=== PATIENT | male | born 1945 | race Caucasian/White ===

== ENCOUNTER 2019-12-18 15:42 | Inpatient (IN) | payer OTHER ==
[~2019-12-18] VITALS: Ht 182.9 cm; Wt 116.1 kg
[2019-12-18 15:42] VITALS: BP_SYST 123
[2019-12-18] MEDS ORDERED: NACL 0.9% 1,000 ML IV ONE (15:45)
[2019-12-18] MEDS ORDERED: ASPIRIN 81 MG TAB.CHEW PO ONE (15:45)
[2019-12-18 16:30] LABS: BASOPHILS % (AUTO) 0.4 % (0.0-2.0); EOSINOPHILS # (AUTO) 0.1 K/uL (0.0-0.4); EOSINOPHILS % (AUTO) 1.4 % (0.0-4.0); HEMATOCRIT 35.7 % (36-54); LYMPHOCYTES % (AUTO) 36.3 % (20.5-51.5); MEAN CORPUSCULAR HEMOGLOBIN 33 pg (27-31); MEAN CORPUSCULAR HGB CONC 34 % (32-36); MEAN CORPUSCULAR VOLUME 98 fL (79.0-98.0); MONOCYTES # (AUTO) 0.8 K/uL (0.0-1.0); MONOCYTES % (AUTO) 9.5 % (1.7-9.3); NEUTROPHILS # (AUTO) 4.4 K/uL (1.8-7.7); NEUTROPHILS % (AUTO) 52.4 % (40.0-70.0); PLATELET COUNT (AUTO) 221 K/uL (130-430); RED BLOOD CELL COUNT(AUTO) 3.66 MIL/uL (4.2-6.2); WHITE BLOOD COUNT (AUTO) 8.3 K/uL (4.8-10.8)
[2019-12-18 16:41] LABS: ANION GAP 6 (5-15); CALCIUM 8.2 mg/dL (8.4-11.0); CHLORIDE 99 mmol/L (98-107); CREATININE 1.08 mg/dL (0.55-1.30); GLUCOSE 112 mg/dL (70-99); POTASSIUM 3.7 mmol/L (3.5-5.1); SODIUM SERUM 130 mmol/L (136-145); UREA NITROGEN, BLOOD 22 mg/dL (8-21)
[2019-12-18 16:44] LABS: INR 1.1 (0.80-1.20); PROTHROMBIN TIME 10.9 SECS (9.5-12.5)
[2019-12-18 16:45] LABS: ALANINE AMINOTRANSFERASE 38 U/L (12-78); ALBUMIN 3.2 g/dL (3.4-4.8); AMYLASE 41 U/L (0-100); ASPARTATE AMINOTRANSFERASE 27 U/L (10-37); LIPASE 105 U/L (73-393); TOTAL BILIRUBIN 0.3 mg/dL (0.0-1.0)
[2019-12-18] MEDS ORDERED: LISI-600 PO (16:51)
[2019-12-18] MEDS ORDERED: LIP20 PO (16:57)
[2019-12-18] MEDS ORDERED: CARB200T PO ×2 (16:57→22:13)
[2019-12-18] MEDS ORDERED: METO25TA6 PO (16:57)
[2019-12-18] MEDS ORDERED: PRAS5TAB6 PO (16:57)
[2019-12-18 17:15] LABS: ALCOHOL, BLOOD < 3 mg/dL (<10)
[2019-12-18 17:55] VITALS: BP_SYST 148
[2019-12-18] MEDS ORDERED: ONDANSETRON HCL 4 MG/2 ML VIAL IVP PRN (18:15)
[2019-12-18] MEDS ORDERED: MORPHINE 2 MG/ML INJ. SYRINGE IVP PRN (18:15)
[2019-12-18] MEDS ORDERED: ACETAMINOPHEN 325 MG TABLET PO PRN (18:15)
[2019-12-18] MEDS ORDERED: MORPHINE 4 MG/ML INJ. SYRINGE IVP PRN (18:15)
[2019-12-18] MEDS ORDERED: ALBUTEROL SULFATE 0.083% 2.5 MG/3 ML VIAL.NEB INH PRN (18:15)
[2019-12-18 18:31] VITALS: BP_SYST 96
[2019-12-18 20:00] VITALS: BP_SYST 151
[2019-12-18] MEDS: TAMSULOSIN HCL 0.4 MG CAP PO SCH (20:58)
[2019-12-19 00:26] VITALS: BP_SYST 122
[2019-12-19] MEDS: PANTOPRAZOLE SODIUM 40 MG/VIAL (PROTONIX) IVP SCH ×3 (05:02→20:39)
[2019-12-19 07:24] LABS: BASOPHILS # (AUTO) 0.1 K/uL (0.0-0.2); BASOPHILS % (AUTO) 0.4 % (0.0-2.0); EOSINOPHILS % (AUTO) 0.2 % (0.0-4.0); HEMATOCRIT 38.8 % (36-54); HEMOGLOBIN 13.3 g/dL (14.0-18.0); LYMPHOCYTES # (AUTO) 1.5 K/uL (1.0-5.5); LYMPHOCYTES % (AUTO) 7.7 % (20.5-51.5); MEAN CORPUSCULAR HEMOGLOBIN 33 pg (27-31); MEAN CORPUSCULAR HGB CONC 34 % (32-36); MEAN CORPUSCULAR VOLUME 97 fL (79.0-98.0); MONOCYTES # (AUTO) 1.5 K/uL (0.0-1.0); MONOCYTES % (AUTO) 7.7 % (1.7-9.3); NEUTROPHILS # (AUTO) 15.9 K/uL (1.8-7.7); PLATELET COUNT (AUTO) 202 K/uL (130-430); RED CELL DISTRIBUTION WIDTH 12.9 % (9.0-15.0)
[2019-12-19] MEDS: METOPROLOL TARTRATE 25 MG TABLET PO SCH (07:58)
[2019-12-19] MEDS: LISINOPRIL 20 MG TABLET PO SCH (07:59)
[2019-12-19 08:04] LABS: ALANINE AMINOTRANSFERASE 44 U/L (12-78); ANION GAP 8 (5-15); ASPARTATE AMINOTRANSFERASE 30 U/L (10-37); CALCIUM 8.3 mg/dL (8.4-11.0); CHLORIDE 101 mmol/L (98-107); CREATININE 0.93 mg/dL (0.55-1.30); GLUCOSE 150 mg/dL (70-99); POTASSIUM 5.2 mmol/L (3.5-5.1); SODIUM SERUM 134 mmol/L (136-145); TOTAL BILIRUBIN 0.6 mg/dL (0.0-1.0); UREA NITROGEN, BLOOD 21 mg/dL (8-21)
[2019-12-19 08:09] LABS: CHOLESTEROL 150 mg/dL (<200); HDL CHOLESTEROL 82 mg/dL (>45); LDL CHOLESTEROL 49 mg/dL (<100); TRIGLYCERIDES 51 mg/dL (30-150)
[2019-12-19 08:10] LABS: CARBAMAZEPINE (TEGRETOL) 10 ug/mL (4-12)
[2019-12-19] MEDS: ATORVASTATIN 20 MG TABLET PO SCH (08:33)
[2019-12-19] MEDS ORDERED: ASPIRIN 325 MG TABLET (ECOTRIN) PO ONE (10:30)
[2019-12-19] MEDS ORDERED: GADOPENTETATE DIMEGLUMINE 5 ML VIAL IV ONE (11:56)
[2019-12-19 12:55] VITALS: BP_SYST 144
[2019-12-19] MEDS ORDERED: PANTOPRAZOLE SODIUM 40 MG/VIAL (PROTONIX) IVP ONE (14:00)
[2019-12-19 16:19] VITALS: BP_SYST 115
[2019-12-19] MEDS ORDERED: BISACODYL 5 MG TABLET.DR (DULCOLAX) PO ONE (17:00)
[2019-12-19] MEDS ORDERED: GOLYTELY / COLYTE SOLUTION 4 LITERS PO ONE (18:00)
[2019-12-19 20:00] VITALS: BP_SYST 141
[2019-12-19] MEDS: TAMSULOSIN HCL 0.4 MG CAP PO SCH (20:35)
[2019-12-19 22:32] VITALS: BP_SYST 153
[2019-12-20 08:15] VITALS: BP_SYST 127
[2019-12-20] MEDS: ASPIRIN 325 MG TABLET (ECOTRIN) PO SCH (09:00)
[2019-12-20] MEDS: PANTOPRAZOLE SODIUM 40 MG/VIAL (PROTONIX) IVP SCH ×2 (09:00→21:06)
[2019-12-20] MEDS: ATORVASTATIN 20 MG TABLET PO SCH (09:00)
[2019-12-20] MEDS: LISINOPRIL 20 MG TABLET PO SCH (09:00)
[2019-12-20] MEDS: METOPROLOL TARTRATE 25 MG TABLET PO SCH (09:00)
[2019-12-20 11:01] LABS: INR 1.1 (0.80-1.20); PROTHROMBIN TIME 11.1 SECS (9.5-12.5)
[2019-12-20] MEDS ORDERED: MIDAZOLAM HCL 5 MG/5 ML VIAL ONE (11:38)
[2019-12-20] MEDS ORDERED: SIMETHICONE 40 MG/0.6 ML ML ONE (11:39)
[2019-12-20] MEDS ORDERED: metroNIDAZOLE 500 mg/NS 100 ML IV ONE (12:00)
[2019-12-20] MEDS: cefTRIAXone 1 GM IVPB PREMIX 50 ML IV SCH (12:22)
[2019-12-20] MEDS: fentaNYL CITRATE/PF 100 MCG/2 ML AMP ONE ×2 (15:29→15:37)
[2019-12-20] MEDS: MIDAZOLAM HCL 5 MG/5 ML VIAL ONE ×2 (15:29→15:37)
[2019-12-20] MEDS ORDERED: IOHEXOL 100 ML IV ONE (17:49)
[2019-12-20 19:50] VITALS: BP_SYST 152
[2019-12-20] MEDS: TAMSULOSIN HCL 0.4 MG CAP PO SCH (21:06)
[2019-12-20] MEDS: metroNIDAZOLE 500 mg/NS 100 ML IV SCH (21:07)
[2019-12-21] MEDS: metroNIDAZOLE 500 mg/NS 100 ML IV SCH ×2 (05:24→13:54)
[2019-12-21 06:32] LABS: ALANINE AMINOTRANSFERASE 30 U/L (12-78); ALBUMIN 2.5 g/dL (3.4-4.8); ANION GAP 6 (5-15); ASPARTATE AMINOTRANSFERASE 31 U/L (10-37); CALCIUM 8.2 mg/dL (8.4-11.0); CHLORIDE 101 mmol/L (98-107); CREATININE 0.88 mg/dL (0.55-1.30); GLUCOSE 131 mg/dL (70-99); POTASSIUM 3.3 mmol/L (3.5-5.1); SODIUM SERUM 133 mmol/L (136-145); TOTAL BILIRUBIN 0.5 mg/dL (0.0-1.0); UREA NITROGEN, BLOOD 12 mg/dL (8-21)
[2019-12-21 07:07] LABS: BASOPHILS # (AUTO) 0.1 K/uL (0.0-0.2); BASOPHILS % (AUTO) 0.7 % (0.0-2.0); EOSINOPHILS # (AUTO) 0.4 K/uL (0.0-0.4); EOSINOPHILS % (AUTO) 2.2 % (0.0-4.0); HEMATOCRIT 31.4 % (36-54); HEMOGLOBIN 10.8 g/dL (14.0-18.0); LYMPHOCYTES # (AUTO) 2.3 K/uL (1.0-5.5); LYMPHOCYTES % (AUTO) 13.4 % (20.5-51.5); MEAN CORPUSCULAR HEMOGLOBIN 34 pg (27-31); MEAN CORPUSCULAR HGB CONC 35 % (32-36); MEAN CORPUSCULAR VOLUME 98 fL (79.0-98.0); MONOCYTES # (AUTO) 1.4 K/uL (0.0-1.0); MONOCYTES % (AUTO) 8.2 % (1.7-9.3); NEUTROPHILS # (AUTO) 13.2 K/uL (1.8-7.7); NEUTROPHILS % (AUTO) 75.5 % (40.0-70.0); PLATELET COUNT (AUTO) 209 K/uL (130-430); RED BLOOD CELL COUNT(AUTO) 3.22 MIL/uL (4.2-6.2); RED CELL DISTRIBUTION WIDTH 12.7 % (9.0-15.0); WHITE BLOOD COUNT (AUTO) 17.5 K/uL (4.8-10.8)
[2019-12-21 08:00] VITALS: BP_SYST 125
[2019-12-21] MEDS: PANTOPRAZOLE SODIUM 40 MG/VIAL (PROTONIX) IVP SCH (08:34)
[2019-12-21] MEDS: ATORVASTATIN 20 MG TABLET PO SCH (08:34)
[2019-12-21] MEDS: LISINOPRIL 20 MG TABLET PO SCH (08:35)
[2019-12-21] MEDS: METOPROLOL TARTRATE 25 MG TABLET PO SCH (08:36)
[2019-12-21] MEDS: ASPIRIN 325 MG TABLET (ECOTRIN) PO SCH (09:00)
[2019-12-21 09:16] VITALS: BP_SYST 152
[2019-12-21] MEDS ORDERED: AMOX-426 PO (09:53)
[2019-12-21] MEDS ORDERED: LIP40 PO (09:53)
[2019-12-21] MEDS ORDERED: METR500T PO (09:53)
[2019-12-21] MEDS: cefTRIAXone 1 GM IVPB PREMIX 50 ML IV SCH (12:20)
[2019-12-21 12:49] VITALS: BP_SYST 139
[2019-12-21 13:40] VITALS: BP_SYST 139
[2019-12-21 16:11] VITALS: BP_SYST 116
== END 2019-12-21 17:10 | disposition home or self-care (01) | DRG 871 ==
LOC: SED 15:42 → STU 17:21
PROVIDERS: ADMIT Internal Medicine Hospice and Palliative Medicine; ATTEND Internal Medicine Hospice and Palliative Medicine
PROC: 0DBL8ZX Excision of Transverse Colon, Via Natural or Artificial Opening Endoscopic, Diagnostic (ICD-10-PCS; 2019-12-20)
PROC: 0DBN8ZX Excision of Sigmoid Colon, Via Natural or Artificial Opening Endoscopic, Diagnostic (ICD-10-PCS; 2019-12-20)
PROC: 0DBM8ZX Excision of Descending Colon, Via Natural or Artificial Opening Endoscopic, Diagnostic (ICD-10-PCS; principal; 2019-12-20 11:30)
DX: A41.9 Sepsis, unspecified organism (principal); I21.A1 Myocardial infarction type 2; A09 Infectious gastroenteritis and colitis, unspecified; E78.5 Hyperlipidemia, unspecified; K80.20 Calculus of gallbladder without cholecystitis without obstruction; G40.909 Epilepsy, unspecified, not intractable, without status epilepticus; I25.10 Atherosclerotic heart disease of native coronary artery without angina pectoris; I10 Essential (primary) hypertension; Z82.49 Family history of ischemic heart disease and other diseases of the circulatory system; Z95.5 Presence of coronary angioplasty implant and graft; Z86.73 Personal history of transient ischemic attack (TIA), and cerebral infarction without residual deficits; Z79.899 Other long term (current) drug therapy; I25.2 Old myocardial infarction
CPT/HCPCS: 36415; 45380; 70450-TC; 70553; 71045; 72191; 74175; 76700-TC; 78226; 80053; 80061; 80156-TC; 82150-TC; 82550-TC; 83605; 83690-TC; 83880; 84484; 85025; 85610-TC; 85730-TC; 87040-TC; 88305; 93005; 93306; 93880; 94760; 95816; 96360; 99285; A9537; A9579; C9113; G0378; G0481; G0482; J0696; J2250; J2270; J3010; J3490; J7030; J7050; Q9967